=== PATIENT | male | born 1995 | race Caucasian/White ===

== ENCOUNTER 2020-06-13 09:47 | Outpatient (CLI) | payer BC, SELFPAY ==
[2020-06-18 12:33] LABS: SARS-CoV-2 RNA Undetected (Undetected); SARS-CoV-2 Specimen Source Nasopharynx
== END 2020-06-13 10:07 ==
PROVIDERS: Visit Provider Family Medicine
DX: Z11.59 Encounter for screening for other viral diseases (principal)
CPT/HCPCS: U0003

== ENCOUNTER 2023-08-09 19:25 | Emergency (ER) | payer BC, SELFPAY ==
[2023-08-09 19:33] VITALS: BP 137/91; PULSE 66; RESP 16; TEMP 37; O2SAT 99
--- NOTE | 2023-08-09 19:50 | ED.GENADUL_ITS ---
Discharge Plan Disposition Patient Disposition: Home Condition: Stable Discharge Details Clinical Impression: Laceration of left middle finger Primary Care Provider: Unknown,Unknown ED Provider: Mirela Stevens Home Meds and New Rx's Prescriptions: New cephalexin 500 mg tablet 500 mg PO BID 5 Days Qty: 10 0RF Discharge Instructions Instructions: Finger Laceration (ED) Additional Instructions: Please keep clean and dry for the next 12 to 24 hours. After that you may wash under running soap and water. No soaking or swimming. Have the sutures removed in approximately 7 days. Wear the splint as needed to keep your finger straight. Keep covered while working. Allow to air dry at least 1 to 2 hours a day. Take antibiotic twice daily with yogurt or a probiotic as directed. The anesthesia will wear off in approximately 3 to 4 hours. Follow up with primary care provider/ER to have sutures removed in 7 days. Return to ED sooner if any worsening red streaks, signs of infection, drainage or concerns. Increase oral fluids. Please take Tylenol or Ibuprofen with food every 4-6 hours as needed for pain and swelling. Medical Decision Making 28-year-old male presents to the ER with a chief complaint of left middle finger laceration which occurred approximately 1900 tonight. Patient reports that he was in the garage with a ratchet strap wrapped around a tire when it broke hitting him in the finger. He does have full range of motion noted to his digit. Has approximately 2 cm laceration to the palmar surface of his left middle finger. Bleeding is controlled with pressure. Distal sensation motor intact. He reports last tetanus shot was 2 years ago. TDAP booster ordered, last TDAP was 2017 according to our records. Digital block performed anesthesia achieved. Laceration cleaned with saline and chlorhexidine. Laceration repaired with #5 four-point 0 Ethilon sutures simple interrupted. Wound well approximated. It is jagged. Will place patient in a finger splint give cephalexin due to the laceration over the joint space. Discussed home care with patient who verbalized understanding to have sutures removed in approximately 7 days. Finger placed in aluminum splint by staff mine warfare officer prior to discharge and given written instructions. This text was generated using [employer] system, please disregard any oddities of phrase or misspellings. HPI General Mode of arrival: ambulatory . Date/Time Provider Initiated Documentation: 08/09/23 19:36 . Limitations to Documentation: no limitations . Information obtained by: patient, RN notes reviewed and old records reviewed . HPI Narrative: 28-year-old male presents to the ER with a chief complaint of left middle finger laceration which occurred approximately 1900 tonight. Patient reports that he was in the garage with a ratchet strap wrapped around a tire when it broke hitting him in the finger. He does have full range of motion noted to his digit. Has approximately 2 cm laceration to the palmar surface of his left middle finger. Bleeding is controlled with pressure. Distal sensation motor intact. He reports last tetanus shot was 2 years ago. Related Data Home Medications Medication Instructions Recorded Confirmed cephalexin 500 mg tablet 500 mg PO BID 5 days #10 tabs 08/09/23 Previous Rx's Medication Instructions Recorded cephalexin 500 mg tablet 500 mg PO BID 5 days #10 tabs 08/09/23 Allergies Allergy/AdvReac Type Severity Reaction Status Date / Time No Known Allergies Allergy Unverified 08/09/23 19:35 General Stated Complaint: Laceration SHAREE: 4 Review of Systems Integumentary/Breasts Skin/Breast: Reports wounds (laceration left middle finger) [facility] All Active Problems (Updated 08/09/23 @ 20:47 by Mirela Stevens NP) Laceration of left middle finger (Acute) Surgical History Arthroscopy, Shoulder (09/24/11) Left- AC repair- Family History Mother No problems noted. Father Heart disease Hyperlipidemia Sister No problems noted. Grandfather No problems noted. Grandfather Heart disease Grandmother No problems noted. Grandmother No problems noted. Social History Smoking/Tobacco Use Status: Never Smoking risk assessment performed?: Yes Alcohol Intake: never Drug use: Never Do you feel safe in your relationship?: Yes Exam Extrem Left upper extremity: full ROM, normal capillary refill and hand Details: normal capillary refill, neuromotor exam normal, neurosensory exam normal, normal ROM of fingers and laceration 3rd digit palmar aspect central Details: irregular Hand/finger images: 1. Approximately 2 cm irregular laceration to the palmar aspect of the left middle finger. No evidence of Foreign body or tendon involvement. Course Vital Signs Vital signs: Vital Signs Temperature 37.0 C 08/09/23 19:33 Pulse 66 08/09/23 19:33 Respiratory Rate 16 08/09/23 19:33 Blood Pressure 137/91 H 08/09/23 19:33 Pulse Oximetry 99 08/09/23 19:33 Temperature 37.0 C 08/09/23 19:33 Temperature Source Temporal Artery Scan 08/09/23 19:33 Pulse 66 08/09/23 19:33 Respiratory Rate 16 08/09/23 19:33 Blood Pressure 137/91 H 08/09/23 19:33 Blood Pressure Position Sitting 08/09/23 19:33 Pulse Oximetry 99 08/09/23 19:33 Oxygen Delivery Method Room Air 08/09/23 19:33 Oxygen Flow Rate 0 08/09/23 19:33 Pain Level 2 08/09/23 19:33 Procedures Laceration Laceration 1: Site: upper extremity (Left middle finger) Side (If applicable): left Size (cm): 2 Description: irregular and contaminated Depth: simple, single layer Local Anesthetic: Lidocaine 1% and Bupivicaine 0.5% Amount of anesthesia used (mL): 4 Pre-repair: wound explored, irrigated extensively and deep structures intact Skin layer closed with: nylon Size (cm): 4-0 Number of sutures: 5 Technique: simple, interrupted Nerve Block Nerve Block 1: Time out performed: No Local Anesthetic: Lidocaine 1% and Bupivicaine 0.5% Side: left Nerve Blocks: digital (Middle finger) Procedure Successful: Yes Patient Tolerated Procedure: well Complications: none
[2023-08-09] MEDS: Cephalexin 500 MG CAP PO (20:50)
[2023-08-09] MEDS: Cephalexin 500 MG CAP, 2 CAPS/BTL PO (20:50)
== END 2023-08-09 21:09 | disposition home or self-care (01) ==
PROVIDERS: Emergency Provider Registered Nurse Emergency
DX: S61.213A Laceration without foreign body of left middle finger without damage to nail, initial encounter (principal); W26.8XXA Contact with other sharp object(s), not elsewhere classified, initial encounter
CPT/HCPCS: 12001; 90471

== ENCOUNTER 2024-04-22 05:18 | Outpatient (CLI) | payer BC, SELFPAY ==
[2024-04-27 07:41] LABS: Specimen WB Whole Blood
== END 2024-04-22 05:19 | disposition home or self-care (01) ==
LOC: LBO 05:18
PROVIDERS: Visit Provider Advanced Practice Midwife
DX: Z31.440 Encounter of male for testing for genetic disease carrier status for procreative management (principal)
CPT/HCPCS: 36415; 81329

== ENCOUNTER 2024-11-12 09:42 | Outpatient (REF) | payer BC, SELFPAY ==
[2024-11-12 14:59] LABS: Calculated LDL 123 mg/dL (<100); Cholesterol 202 mg/dL (<200); HDL Cholesterol 64 mg/dL (40-60); Triglyceride 77 mg/dL (<150)
== END 2024-11-12 09:43 | disposition home or self-care (01) ==
LOC: NCHCN 09:42
PROVIDERS: Visit Provider Student in an Organized Health Care Education/Training Program
DX: Z13.220 Encounter for screening for lipoid disorders (principal)
CPT/HCPCS: 80061